=== PATIENT | female | born 1990 | race Caucasian/White ===

== ENCOUNTER 2021-11-11 11:31 | Inpatient (IN) ==
[2021-11-12] MEDS ORDERED: miSOPROStoL 50 MCG TAB PO ONE (01:24)
[2021-11-12] MEDS ORDERED: OXYTOCIN 30 UNITS/500 ML BAG IV PRN (01:24)
[2021-11-12] MEDS ORDERED: LACTATED RINGER'S 1,000 ML IV PRN (01:24)
[2021-11-12] MEDS ORDERED: PATIENT'S ALLERGY INFO NEEDS ENTERED SCH (01:30)
[2021-11-12] MEDS ORDERED: miSOPROStoL 50 MCG TAB ONE (01:45)
[2021-11-12 02:04] LABS: Hematocrit (blood only) 34.9 % (37-47); Hemoglobin 12.3 g/dL (12.0-16.0); Mean Corpuscular Hemoglobin 33.5 pg (25-34); Mean Corpuscular Hgb Conc 35.2 g/dL (32-36); Mean Corpuscular Volume 95.1 fL (80-100); Mean Platelet Volume 10.7 fL (7.4-10.4); Platelet Count 233 K/uL (130-400); RDW Coefficient of Variation 12.1 % (11.5-14.5); RDW Standard Deviation 41.9 fL (36.4-46.3); Red Blood Count 3.67 M/uL (4.2-5.4); White Blood Count 9.42 K/uL (4.8-10.8)
--- NOTE | 2021-11-12 07:08 | History & Physical Report ---
Date of Service November 12, 2021 Assessment & Plan (1) : Plan: Induction of labor planned with Cytotec for cervical ripening Admission and Anticipated Discharge Date Admission Date: November 12, 2021 History of Present Illness Chief Complaint: induction for post-dates Primary Care Provider: ZENY PCP 31 F [id number] at 40.5 weeks admitted to L&D for induction of labor for post-dates . course has been uncomplicated. GBS is negative. Covid is negative. Allergies Allergy/AdvReac Type Severity Reaction Status Date / Time No Known Allergies Allergy Verified 11/12/21 02:04 Home Medications Medication Instructions Recorded Confirmed Type Vitamin 1 tab PO DAILY 11/12/21 11/12/21 History Vitron-C 1 tab PO BID 11/12/21 11/12/21 History Patient History Medical History Antepartum anemia complicating Plantar warts , normal first Surgical History History of breast augmentation History of repair of inguinal hernia History of wisdom tooth extraction Family History Other Family history of breast cancer in mother Family history of pancreatic cancer Social History Smoking Status: Never smoker Second Hand Exposure: No; Do You Dip or Chew Tobacco: No; Tobacco Cessation Education Requested by Patient: No Hx Alcohol Use: No Hx Substance Use: No Preferred Language: [place] Islander Communication Ability: Effective 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 marital status: Current Living Situation: Spouse Other Information That Helps Us Care for You: No Feels Safe at Home: Yes Safety Concerns: Feels Safe At This Time Assistive Devices: None 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/20 Review of Systems All systems reviewed & are unremarkable except as noted in HPI & below Physical Exam Constitutional: WD/WN, vitals as above comfortable Eyes: PERRL, conjunctivae normal, anicteric sclerae Respiratory: normal respiratory effort, lungs clear to auscultation Cardiovascular: RRR, no murmur, no edema Skin: no rashes, warm and dry Neurologic: patellar DTR's 2+ bilat, sensation intact Psychiatric: A+Ox3, euthymic affect Genitourinary: no vaginal lesions, no adnexal mass OB Exam Abdomen: + fundal height and + vertex Manual OB Exam: + cervical dilation 1 cm, + cervical effacement 50% and + station high OB Exam Monitor Tracing: + external FHT monitor used, + external uterine monitor used, + category I and + normal FHT variability Results & Data ([facility]) Vital Signs (Past 12 Hours) Vital Signs Temp Pulse Resp BP 11/12/21 01:30 36.8 C 18 11/12/21 00:53 115 H 127/79 11/12/21 00:51 36.8 C 20 Laboratory Results Laboratory Results - last 24 hr 11/12/21 01:37 WBC 9.42 RBC 3.67 L Hgb 12.3 Hct 34.9 L MCV 95.1 MCH 33.5 MCHC 35.2 RDW Std Deviation 41.9 RDW Coeff of Santosh 12.1 Plt Count 233 MPV 10.7 H Monitoring External Monitor Cat 1
[2021-11-12] MEDS ORDERED: miSOPROStoL 25 MCG TAB ONE (08:46)
[2021-11-12] MEDS: miSOPROStoL 25 MCG TAB SL SCH ×2 (09:03→13:32)
--- NOTE | 2021-11-12 13:33 | Labor Progress Brief Note ---
Date of Service November 12, 2021 Subjective Patient doing well at this time, noticed some spotting when she wiped when she went to the bathroom. No other complaints at this time Assessment & Plan (1) 40 weeks gestation of : Plan: Continue Misoprostol 25 mcg sublingually every 4 hours Epidural with patient request, once patient continues to make cervical change, will proceed with oxytocin augmentation AROM Anticipate Admission and Anticipated Discharge Date Admission Date: November 12, 2021 Physical Exam Physical Exam: heart tracing: Baseline 1 45-1 50, moderate variability, positive accelerations, no decelerations, category 1 tracing Tocometer: Irregular contractions Cervix: 1.5/40/-3 Results & Data ([facility]) Vital Signs (Past 12 Hours) Vital Signs Pulse BP 11/12/21 13:24 83 134/81 11/12/21 07:59 102 H 138/91
[2021-11-12] MEDS ORDERED: DINOPROSTONE 10 MG INSERT PV ONE (19:00)
--- NOTE | 2021-11-12 19:54 | Labor Progress Brief Note ---
Date of Service November 12, 2021 Subjective Patient doing well at this time, no regular contractions. No other complaints Assessment & Plan (1) 40 weeks gestation of : Plan: Cervidil for 12 hours for cervical ripening Epidural with patient request, once patient continues to make cervical change, will proceed with oxytocin augmentation AROM Anticipate Admission and Anticipated Discharge Date Admission Date: November 12, 2021 Physical Exam Physical Exam: heart tracing: Baseline 125, moderate variability, positive accelerations, no decelerations, category 1 tracing Tocometer contractions q. 5 to 6 minutes Cervix: 1.5/50/-3 posterior, Cervidil placed Results & Data ([facility]) Vital Signs (Past 12 Hours) Vital Signs Temp Pulse Resp BP 11/12/21 19:25 36.8 C 72 18 132/81 11/12/21 16:36 71 128/82 11/12/21 13:24 83 134/81 11/12/21 07:59 36.6 C 102 H 18 138/91
[2021-11-13] MEDS ORDERED: DINOPROSTONE 10 MG INSERT PV ONE (11:25)
--- NOTE | 2021-11-13 11:27 | Labor Progress Brief Note ---
Date of Service November 13, 2021 Subjective Reason For Note: Routine Evaluation Assessment & Plan Admission and Anticipated Discharge Date Admission Date: November 12, 2021 Physical Exam Genitourinary: Manual OB Exam: + cervical dilation 1 cm and 2 cm, + cervical effacement 50% and + station high Cervix firm and posterior discussed continuing Cervidil for ripening of cervix Results & Data ([facility]) Vital Signs (Past 12 Hours) Vital Signs Temp Pulse Resp BP 11/13/21 10:59 69 137/68 11/13/21 07:40 36.9 C 72 20 144/78 H 11/13/21 04:50 36.6 C 18 11/13/21 04:47 70 106/55 L 11/12/21 23:49 36.9 C 84 18 112/64
--- NOTE | 2021-11-13 11:44 | Labor Progress Brief Note ---
Date of Service November 13, 2021 Assessment & Plan Admission and Anticipated Discharge Date Admission Date: November 12, 2021 Physical Exam Genitourinary: OB Exam Monitor Tracing: + external FHT monitor used, + external uterine monitor used, + category I and + normal FHT variability Cervidil 10 mg placed vaginally. Results & Data ([facility]) Vital Signs (Past 12 Hours) Vital Signs Temp Pulse Resp BP 11/13/21 10:59 36.9 C 69 20 137/68 11/13/21 07:40 36.9 C 72 20 144/78 H 11/13/21 04:50 36.6 C 18 11/13/21 04:47 70 106/55 L 11/12/21 23:49 36.9 C 84 18 112/64
[2021-11-13] MEDS ORDERED: BUTORPHANOL TARTRATE 1 MG/ML VIAL IV STA (22:14)
[2021-11-13] MEDS ORDERED: BUTORPHANOL TARTRATE 1 MG/ML VIAL ONE (22:16)
--- NOTE | 2021-11-13 23:49 | Labor Progress Brief Note ---
Date of Service November 13, 2021 Assessment & Plan Admission and Anticipated Discharge Date Admission Date: November 12, 2021 Physical Exam Genitourinary: Manual OB Exam: + cervical dilation 4 cm, + cervical effacement 70% and + station -2 OB Exam Monitor Tracing: + external FHT monitor used, + external uterine monitor used, + category I and + normal FHT variability Cervidil removedplans for epidural EFW 7.5 lbs Results & Data ([facility]) Vital Signs (Past 12 Hours) Vital Signs Temp Pulse Resp BP 11/13/21 23:04 36.7 C 62 16 107/55 L 11/13/21 19:04 36.5 C 75 16 114/63 11/13/21 15:30 36.9 C 78 20 124/78
[2021-11-13] MEDS ORDERED: SODIUM CHLORIDE 0.9% INJ 10 ML VIAL ONE (23:54)
[2021-11-13] MEDS ORDERED: ePHEDrine sulfate 50 MG/ML AMP ONE (23:54)
[2021-11-13] MEDS ORDERED: BUPIVACAINE 0.25% 30 ML VIAL ONE (23:54)
[2021-11-13] MEDS ORDERED: fentaNYL citrate 100 MCG/2 ML VIAL ONE (23:54)
[2021-11-13] MEDS ORDERED: fentaNYL 2MCG/ML ROPIVACAINE 1.25MG/ML 100 ML BAG EPI ONE (23:55)
[2021-11-14] MEDS ORDERED: NALOXONE HCL 0.4 MG/1 ML VIAL/CARP IV PRN (00:26)
[2021-11-14] MEDS ORDERED: PROMETHAZINE HCL 6.25 MG in SODIUM CHLORIDE 0.9% 50 ML IV PRN (00:26)
[2021-11-14] MEDS ORDERED: ONDANSETRON INJ 2 MG/ML 2 ML VIAL IV PRN (00:26)
[2021-11-14] MEDS ORDERED: ePHEDrine sulfate 50 MG/ML AMP IV PRN (00:26)
[2021-11-14] MEDS ORDERED: diphenhydrAMINE 50 MG/ML VIAL IV PRN (00:26)
[2021-11-14] MEDS ORDERED: NALBUPHINE HCL INJ 10 MG/ML AMP IV PRN (00:26)
[2021-11-14] MEDS ORDERED: NALOXONE HCL 1 MG in SODIUM CHLORIDE 0.9% 1000ML 1,000 ML IV PRN (00:26)
--- NOTE | 2021-11-14 00:27 | Anesthesiology Consultation ---
Date of Service November 14, 2021 Assessment & Plan Chart Review Chart Review: Patient NOT seen in Pre Admission Testing and Acceptable Risk for Labor Epidural Consults Requested none ASA ASA2 Proposed Anesthesia Anesthesia Type: Labor Epidural Risk / Benefits Reviewed With: PT / POA / Parent / Guardian, Accepts Plan and Informed Consent Obtained History Height/Weight Height: 5 ft 2 in Weight: 71.214 kg Allergies Allergy/AdvReac Type Severity Reaction Status Date / Time No Known Allergies Allergy Verified 11/12/21 02:04 Medications Home Medications Medication Instructions Recorded Confirmed Last Taken Vitamin 1 tab PO DAILY 11/12/21 11/12/21 11/11/21 08:00 Vitron-C 1 tab PO BID 11/12/21 11/12/21 11/11/21 08:00 Active Medications Generic Name Dose Route Start Last Admin Trade Name Freq PRN Reason Stop Dose Admin Lactated Ringer's 1,000 mls @ 125 mls/hr 11/12/21 01:24 11/13/21 23:49 Lr IV 11/14/21 01:23 999 mls/hr .Q8H PRN Administration L&D Protocol Protocol Past Medical History Medical History Antepartum anemia complicating Plantar warts , normal first Exercise / Class Metabolic Activity II 4-5 Yardwork/Stairs/Walk up hill Past Family History Family History Other Family history of breast cancer in mother Family history of pancreatic cancer Past Surgical History Surgical History History of breast augmentation History of repair of inguinal hernia History of wisdom tooth extraction Past Anesthesia History No Hx of Anesthesia Complications and No Family Hx of Anesthesia Complications History of PONV No Hx of PONV and No Hx of Motion Sickness Social History Smoking Status: Never smoker Do You Dip or Chew Tobacco: No Hx Alcohol Use: No Hx Substance Use: No substance use type: does not use Physical Exam Vital Signs Last Vital Signs Temp 36.7 C 11/13/21 23:04 Pulse 62 11/13/21 23:04 Resp 16 11/13/21 23:04 BP 107/55 L 11/13/21 23:04 ENMT Mouth: no dentition abnormality Thyromental Distance: > or= 3.5 Finger Breadths Mallampati Class: II Neck normal visual inspection Respiratory normal respiratory effort Auscultation: lungs clear to auscultation bilaterally Cardiovascular Rate/Rhythm: regular rate and regular rhythm Psychiatric Orientation: alert Testing Laboratory Results 11/12/21 01:37
[2021-11-14] MEDS: LACTATED RINGER'S 1,000 ML IV SCH ×3 (04:09→16:58)
[2021-11-14] MEDS ORDERED: OXYTOCIN 30 UNITS/500 ML BAG IV PRN ×2 (05:32→21:06)
--- NOTE | 2021-11-14 09:29 | Labor Progress Brief Note ---
Date of Service November 14, 2021 Assessment & Plan Admission and Anticipated Discharge Date Admission Date: November 12, 2021 Physical Exam Genitourinary: Manual OB Exam: + cervical dilation 6 cm, + cervical effacement 90%, + station Not -2 and + amniotic fluid clear OB Exam Monitor Tracing: + external FHT monitor used, + external uterine monitor used, + category I and + normal FHT variability AROM with Amni-hook clear fluid Results & Data ([facility]) Vital Signs (Past 12 Hours) Vital Signs Temp Pulse Resp BP Pulse Ox 11/14/21 09:18 75 109/58 L 95 11/14/21 09:03 71 105/58 L 95 11/14/21 09:01 20 11/14/21 08:49 72 108/56 L 11/14/21 08:48 73 96 11/14/21 08:33 85 108/56 L 96 11/14/21 08:31 20 11/14/21 08:19 71 133/68 11/14/21 08:18 72 97 11/14/21 08:04 72 126/71 11/14/21 08:03 71 97 11/14/21 08:01 20 11/14/21 07:49 77 133/80 11/14/21 07:48 71 131/78 96 11/14/21 07:34 76 130/77 11/14/21 07:33 88 97 11/14/21 07:31 20 11/14/21 07:20 37.2 C 20 11/14/21 07:19 80 128/78 11/14/21 07:18 88 98 11/14/21 07:03 95 H 114/68 97 11/14/21 06:49 67 113/59 L 11/14/21 06:48 68 95 11/14/21 06:33 80 111/64 97 11/14/21 06:19 76 113/66 11/14/21 06:18 71 96 11/14/21 06:05 77 117/70 11/14/21 06:03 70 96 11/14/21 05:48 80 102/55 L 96 11/14/21 05:33 79 112/64 96 11/14/21 05:20 87 103/65 11/14/21 05:18 98 H 96 11/14/21 05:05 74 107/57 L 11/14/21 05:03 72 96 11/14/21 04:49 75 95/51 L 11/14/21 04:48 82 95 11/14/21 04:34 75 100/58 L 11/14/21 04:33 75 95 11/14/21 04:19 74 100/59 L 11/14/21 04:18 76 95 11/14/21 04:03 75 104/56 L 96 11/14/21 03:49 80 105/58 L 11/14/21 03:48 80 96 11/14/21 03:33 82 115/60 96 11/14/21 03:18 78 107/56 L 97 11/14/21 03:03 78 107/60 96 11/14/21 03:00 36.5 C 16 11/14/21 02:50 74 108/66 11/14/21 02:48 65 96 11/14/21 02:33 78 104/56 L 96 11/14/21 02:20 84 102/57 L 11/14/21 02:18 86 96 11/14/21 02:04 82 109/62 11/14/21 02:03 81 96 11/14/21 01:48 81 114/56 L 96 11/14/21 01:35 81 106/55 L 11/14/21 01:33 75 96 11/14/21 01:18 76 113/58 L 96 11/14/21 01:04 71 119/66 11/14/21 01:03 70 96 11/14/21 00:48 81 118/62 96 11/14/21 00:46 86 124/66 11/14/21 00:44 73 117/61 11/14/21 00:42 82 119/65 11/14/21 00:40 65 128/72 11/14/21 00:38 71 134/78 11/14/21 00:29 91 H 98 11/13/21 23:04 36.7 C 62 16 107/55 L
[2021-11-14] MEDS: fentaNYL 2MCG/ML ROPIVACAINE 1.25MG/ML 100 ML BAG EPI PRN ×2 (09:49→16:19)
[2021-11-14] MEDS ORDERED: ACETAMINOPHEN 500 MG TAB PO PRN (13:38)
[2021-11-14] MEDS: AMPICILLIN 1,000 MG in SODIUM CHLOR 0.9% AD-VAN 50 ML IV SCH ×2 (14:12→19:36)
--- NOTE | 2021-11-14 14:51 | Labor Progress Brief Note ---
Date of Service November 14, 2021 Assessment & Plan Admission and Anticipated Discharge Date Admission Date: November 12, 2021 Physical Exam Genitourinary: Manual OB Exam: + cervical dilation 9 cm, + cervical effacement 100%, + station 0 and + amniotic fluid clear OB Exam Monitor Tracing: + external FHT monitor used, + external uterine monitor used, + category I and + normal FHT variability anterior lip Results & Data ([facility]) Vital Signs (Past 12 Hours) Vital Signs Temp Pulse Resp BP Pulse Ox 11/14/21 14:48 92 H 146/81 H 96 11/14/21 14:46 38.4 C H 20 11/14/21 14:33 96 H 143/82 H 97 11/14/21 14:31 20 11/14/21 14:18 86 142/81 H 96 11/14/21 14:03 83 151/91 H 98 11/14/21 14:01 20 11/14/21 13:48 84 143/79 H 99 11/14/21 13:33 86 144/78 H 98 11/14/21 13:28 38.6 C H 20 11/14/21 13:18 97 H 124/73 97 11/14/21 13:04 82 125/74 11/14/21 13:03 78 96 11/14/21 13:00 20 11/14/21 12:48 82 124/73 98 11/14/21 12:42 37.7 C H 20 11/14/21 12:34 75 106/59 L 11/14/21 12:33 78 96 11/14/21 12:30 20 11/14/21 12:19 73 109/60 11/14/21 12:18 73 97 11/14/21 12:03 71 106/59 L 98 11/14/21 11:49 71 113/63 11/14/21 11:48 71 99 11/14/21 11:33 77 124/62 99 11/14/21 11:31 18 11/14/21 11:18 77 116/63 98 11/14/21 11:04 37.3 C 80 119/71 11/14/21 11:03 78 99 11/14/21 11:01 20 11/14/21 10:48 76 118/72 98 11/14/21 10:34 80 123/74 11/14/21 10:33 71 97 11/14/21 10:31 20 11/14/21 10:19 87 123/75 11/14/21 10:18 79 97 11/14/21 10:04 80 123/72 11/14/21 10:03 80 96 11/14/21 10:01 20 11/14/21 09:48 88 120/77 97 11/14/21 09:34 82 123/73 11/14/21 09:33 83 96 11/14/21 09:31 20 11/14/21 09:18 75 109/58 L 95 11/14/21 09:03 71 105/58 L 95 11/14/21 09:01 20 11/14/21 08:49 72 108/56 L 11/14/21 08:48 73 96 11/14/21 08:33 85 108/56 L 96 11/14/21 08:31 20 11/14/21 08:19 71 133/68 11/14/21 08:18 72 97 11/14/21 08:04 72 126/71 11/14/21 08:03 71 97 11/14/21 08:01 20 11/14/21 07:49 77 133/80 11/14/21 07:48 71 131/78 96 11/14/21 07:34 76 130/77 11/14/21 07:33 88 97 11/14/21 07:31 20 11/14/21 07:20 37.2 C 20 11/14/21 07:19 80 128/78 11/14/21 07:18 88 98 11/14/21 07:03 95 H 114/68 97 11/14/21 06:49 67 113/59 L 11/14/21 06:48 68 95 11/14/21 06:33 80 111/64 97 11/14/21 06:19 76 113/66 11/14/21 06:18 71 96 11/14/21 06:05 77 117/70 11/14/21 06:03 70 96 11/14/21 05:48 80 102/55 L 96 11/14/21 05:33 79 112/64 96 11/14/21 05:20 87 103/65 11/14/21 05:18 98 H 96 11/14/21 05:05 74 107/57 L 11/14/21 05:03 72 96 11/14/21 04:49 75 95/51 L 11/14/21 04:48 82 95 11/14/21 04:34 75 100/58 L 11/14/21 04:33 75 95 11/14/21 04:19 74 100/59 L 11/14/21 04:18 76 95 11/14/21 04:03 75 104/56 L 96 11/14/21 03:49 80 105/58 L 11/14/21 03:48 80 96 11/14/21 03:33 82 115/60 96 11/14/21 03:18 78 107/56 L 97 11/14/21 03:03 78 107/60 96 11/14/21 03:00 36.5 C 16
[2021-11-14] MEDS ORDERED: NURSING L&D Epidural Breakthrough Pain Update ONE (15:59)
--- NOTE | 2021-11-14 20:33 | Delivery Summary ---
Vaginal Delivery Summary Date of Service November 14, 2021 Vaginal Delivery Summary Delivery Note live male LAYTON over intact perineum with nuchal cord x1 reduced at perineum. Apgars 7/9 weight pending. Cord blood obtained followed by spontaneous delivery of intact placenta. Small vaginal tear repaired with one figure of eoght 3/0 Vicryl suture. EBL 250 ml. Final sponge needle and instrument count are correct. Mom and baby stable.
[2021-11-14] MEDS ORDERED: BENZOCAINE 20% AER SPR 82.5 GM CAN EXT PRN (21:06)
[2021-11-14] MEDS ORDERED: METHYLERGONOVINE MALEATE 0.2 MG/ML AMP IM ONE (21:06)
[2021-11-14] MEDS ORDERED: bisacodyL 10 MG SUPP PR PRN (21:06)
[2021-11-14] MEDS ORDERED: DIPHTHERIA/TETANUS/PERTUSSIS 0.5 ML SYR/VIAL IM ONE (21:06)
[2021-11-14] MEDS ORDERED: HYDROCORTISONE ACETATE 25 MG SUPP PR PRN (21:06)
[2021-11-14] MEDS ORDERED: SUPERCREAM 0.870% 15 GM JAR EXT PRN (21:06)
[2021-11-14] MEDS ORDERED: ACETAMINOPHEN 325 MG TAB PO PRN (21:06)
[2021-11-14] MEDS: IBUPROFEN 600 MG TAB PO PRN (21:21)
[2021-11-14] MEDS: DOCUSATE SODIUM 100 MG CAP PO SCH (21:23)
--- NOTE | 2021-11-14 22:07 | Anesthesia Procedure Note ---
Date of Service November 14, 2021 Anesthesia Post Epidural Note Vital Signs Vital Signs: Temp Pulse Resp BP Pulse Ox 36.5 C 71 18 153/91 H 98 11/14/21 19:06 11/14/21 22:03 11/14/21 19:06 11/14/21 22:03 11/14/21 20:18 Pain Intensity Bilateral Abdomen: Pain Intensity: 10 Notes Mental Status: alert / awake / arousable Nausea / Vomiting: adequately controlled Pain: adequately controlled Airway Patency, RR, SpO2: stable & adequate BP & HR: stable & adequate Hydration State: stable & adequate Neuraxial Anesthesia: was administered and sensory block is resolving Anesthetic Complications: no major complications apparent and Pt Satisfied with anesthetic care Epidural: Removed without complications and With tip intact
[2021-11-15] MEDS: AMPICILLIN 1,000 MG in SODIUM CHLOR 0.9% AD-VAN 50 ML IV SCH ×4 (02:21→20:45)
[2021-11-15] MEDS: LACTATED RINGER'S 1,000 ML IV SCH (02:22)
[2021-11-15 06:42] LABS: Hematocrit (blood only) 32.1 % (37-47); Hemoglobin 11.2 g/dL (12.0-16.0); Mean Corpuscular Hemoglobin 32.7 pg (25-34); Mean Corpuscular Hgb Conc 34.9 g/dL (32-36); Mean Corpuscular Volume 93.6 fL (80-100); Mean Platelet Volume 10.4 fL (7.4-10.4); Platelet Count 200 K/uL (130-400); RDW Coefficient of Variation 12.1 % (11.5-14.5); RDW Standard Deviation 40.7 fL (36.4-46.3); Red Blood Count 3.43 M/uL (4.2-5.4); White Blood Count 23.31 K/uL (4.8-10.8)
[2021-11-15] MEDS: DOCUSATE SODIUM 100 MG CAP PO SCH ×2 (07:29→20:54)
[2021-11-15] MEDS: PRENATAL VITAMIN 1 TAB PO SCH (07:29)
[2021-11-15] MEDS: ASCORBIC ACID 500 MG TAB PO SCH (07:29)
[2021-11-15] MEDS: FERROUS SULFATE 325 MG TAB PO SCH (07:29)
--- NOTE | 2021-11-15 07:48 | Obstetrical Progress Note ---
Date of Service November 15, 2021 Assessment & Plan Admission and Anticipated Discharge Date Admission Date: November 12, 2021 Subjective Patient is seen and examined. She feels well, no complaints other than being tired, she had long labor and pushed for 3 hours. Ambulating without dizziness Voiding without difficulty Tolerating regular diet with out N&V Bleeding is minimal No fever/ chills/ CP/ SOB/ N&V/ Leg pain Breast feeding without problems Vital Signs Temp Pulse Pulse Resp BP BP Pulse Ox 11/15/21 07:15 36.7 C 65 16 118/78 96 11/15/21 03:30 36.7 C 64 20 121/77 11/14/21 23:30 36.8 C 73 20 135/83 11/14/21 22:33 67 149/85 H 11/14/21 22:18 68 149/85 H 11/14/21 22:03 71 153/91 H 11/14/21 21:48 81 154/90 H 11/14/21 21:46 71 151/87 H 11/14/21 21:33 69 155/90 H 11/14/21 21:18 71 146/88 H 11/14/21 21:03 64 154/92 H 11/14/21 20:48 76 154/97 H 11/14/21 20:33 72 142/83 H 11/14/21 20:18 89 132/62 98 11/14/21 20:04 131 H 162/93 H 11/14/21 20:03 147 H 98 11/14/21 19:48 123 H 159/89 H 96 Lab Results 11/12/21 11/15/21 Range/Units 01:37 06:16 WBC 9.42 23.31 H (4.8-10.8) K/uL RBC 3.67 L 3.43 L (4.2-5.4) M/uL Hgb 12.3 11.2 L (12.0-16.0) g/dL Hct 34.9 L 32.1 L (37-47) % MCV 95.1 93.6 (80-100) fL MCH 33.5 32.7 (25-34) pg MCHC 35.2 34.9 (32-36) g/dL RDW Std Deviation 41.9 40.7 (36.4-46.3) fL RDW Coeff of Santosh 12.1 12.1 (11.5-14.5) % Plt Count 233 200 (130-400) K/uL MPV 10.7 H 10.4 (7.4-10.4) fL PE: General: Alert, orientedx3, NAD Abd: soft, NT, fundus firm, below Umbilicus Perineum intact, Lochia rubra minimal Ext; NT, no edema AP: 31 yo s/p , IOL since 11/11, fever during labor and on IV Ampicillin, ppd# 1 VSS Afebrile doing well WBCC elevated, continue IV AB until am and recheck CBC with diff Baby is doing well, afebrile Continue routine care All questions were answered Anticipate D/C home tomorrow Results & Data ([facility]) Vital Signs (Past 12 Hours) Vital Signs Temp Pulse Pulse Resp BP BP Pulse Ox 11/15/21 07:15 36.7 C 65 16 118/78 96 11/15/21 03:30 36.7 C 64 20 121/77 11/14/21 23:30 36.8 C 73 20 135/83 11/14/21 22:33 67 149/85 H 11/14/21 22:18 68 149/85 H 11/14/21 22:03 71 153/91 H 11/14/21 21:48 81 154/90 H 11/14/21 21:46 71 151/87 H 11/14/21 21:33 69 155/90 H 11/14/21 21:18 71 146/88 H 11/14/21 21:03 64 154/92 H 11/14/21 20:48 76 154/97 H 11/14/21 20:33 72 142/83 H 11/14/21 20:18 89 132/62 98 11/14/21 20:04 131 H 162/93 H 11/14/21 20:03 147 H 98 11/14/21 19:48 123 H 159/89 H 96
[2021-11-15] MEDS ORDERED: PRENATAL VITAMIN PO SCH (09:00)
[2021-11-15] MEDS: IBUPROFEN 600 MG TAB PO PRN ×3 (10:03→20:53)
[2021-11-15] MEDS ORDERED: bisacodyL 5 MG TABEC PO SCH (20:00)
[2021-11-16] MEDS: AMPICILLIN 1,000 MG in SODIUM CHLOR 0.9% AD-VAN 50 ML IV SCH ×2 (02:38→07:47)
[2021-11-16] MEDS: IBUPROFEN 600 MG TAB PO PRN ×2 (02:38→08:17)
[2021-11-16 06:29] LABS: Basophils # (auto) 0.03 K/uL (0-0.2); Basophils % (auto) 0.2 %; Eosinophils # (auto) 0.21 K/uL (0-0.5); Eosinophils % (auto) 1.5 %; Hematocrit (blood only) 27.8 % (37-47); Hemoglobin 9.8 g/dL (12.0-16.0); Immature Granulocytes # (auto) 0.05 K/uL (0.00-0.02); Immature Granulocytes % (auto) 0.4 %; Lymphocytes # (auto) 1.77 K/uL (1.2-3.4); Lymphocytes % (auto) 12.5 %; Mean Corpuscular Hemoglobin 33.3 pg (25-34); Mean Corpuscular Hgb Conc 35.3 g/dL (32-36); Mean Corpuscular Volume 94.6 fL (80-100); Mean Platelet Volume 10.1 fL (7.4-10.4); Monocytes # (auto) 0.68 K/uL (0.11-0.59); Monocytes % (auto) 4.8 %; Neutrophils # (auto) 11.46 K/uL (1.4-6.5); Neutrophils % (auto) 80.6 %; Platelet Count 194 K/uL (130-400); RDW Coefficient of Variation 12.3 % (11.5-14.5); RDW Standard Deviation 41.8 fL (36.4-46.3); Red Blood Count 2.94 M/uL (4.2-5.4)
[2021-11-16] MEDS: DOCUSATE SODIUM 100 MG CAP PO SCH (08:17)
[2021-11-16] MEDS: FERROUS SULFATE 325 MG TAB PO SCH (08:17)
[2021-11-16] MEDS: PRENATAL VITAMIN 1 TAB PO SCH (08:17)
[2021-11-16] MEDS: ASCORBIC ACID 500 MG TAB PO SCH (08:19)
--- NOTE | 2021-11-16 11:45 | Obstetrical Progress Note ---
Date of Service November 16, 2021 Subjective Ambulation: ambulating normally Voiding: no voiding problems Passing Gas:: Yes Diet Tolerance:: regular diet Lochia:: Small Feeding Type:: breast feeding Current Pain Level(1-10): 0 doing well Review of Systems All systems reviewed & are unremarkable except as noted in HPI & below Physical Exam Constitutional WD/WN, vitals as above comfortable abdomen soft and non-tender fundus firm no edema neg Tomy's for d/c today Results & Data ([facility]) Vital Signs (Past 12 Hours) Vital Signs Temp Pulse Resp BP Pulse Ox 11/16/21 10:42 36.7 C 69 18 123/84 96 11/16/21 07:04 36.7 C 69 18 123/84 96 11/16/21 03:27 36.6 C 64 20 106/58 L 11/16/21 00:23 36.7 C 68 18 118/68 Laboratory Results Laboratory Results - last 72 hr 11/15/21 11/16/21 06:16 06:15 WBC 23.31 H 14.20 H RBC 3.43 L 2.94 L Hgb 11.2 L 9.8 L Hct 32.1 L 27.8 L MCV 93.6 94.6 MCH 32.7 33.3 MCHC 34.9 35.3 RDW Std Deviation 40.7 41.8 RDW Coeff of Santosh 12.1 12.3 Plt Count 200 194 MPV 10.4 10.1 Immature Gran % (Auto) 0.4 Neut % (Auto) 80.6 Lymph % (Auto) 12.5 Irwin % (Auto) 4.8 Eos % (Auto) 1.5 Baso % (Auto) 0.2 Neut # (Auto) 11.46 H Lymph # (Auto) 1.77 Irwin # (Auto) 0.68 H Eos # (Auto) 0.21 Baso # (Auto) 0.03 Immature Gran # (Auto) 0.05 H
== END 2021-11-16 11:50 | disposition home or self-care (01) | DRG 806 ==
LOC: 4S1 11-12 00:32 → 4S2 11-14 23:28

== ENCOUNTER 2023-02-08 09:30 | Observation (INO) ==
[2023-02-08] MEDS ORDERED: ONDANSETRON INJ 2 MG/ML 2 ML VIAL IV PRN (09:45)
[2023-02-08] MEDS ORDERED: PROMETHAZINE HCL 25 MG in SODIUM CHLORIDE 0.9% 50 ML IV PRN (09:45)
[2023-02-08] MEDS ORDERED: D5W AND LACTATED RINGERS 1,000 ML IV SCH (09:45)
[2023-02-08] MEDS ORDERED: ONDANSETRON 4 MG OD TAB PO PRN (09:45)
[2023-02-08 10:07] LABS: Appearance Urine Clear (Clear); Bacteria Urine Automated Negative (Negative); Bilirubin Urine Negative (Negative); Blood Urine Negative (Negative); Color Urine Yellow; Epithelial Cell Urine Auto >30 /lpf (0-5); Glucose Urine UA Negative (Negative); Ketones Urine 1+ (Negative); Leukocyte Esterase Urine Trace (Negative); Nitrite Urine Negative (Negative); Protein Urine Negative (Negative); RBC Urine Automated 0-4 /hpf (0-4); Specific Gravity Urine 1.006 (1.000-1.030); Urobilinogen Urine Negative (Negative)
--- NOTE | 2023-02-08 10:15 | History & Physical Report ---
Date of Service February 08, 2023 Assessment & Plan (1) Nausea and vomiting during : Plan: 32-year-old -0-1-1 at 33 weeks and 4 days of gestation who has been having nausea vomiting diarrhea since yesterday afternoon after eating outside, dehydration with ketonuria, Vital signs stable afebrile, heart rate reassuring, No signs or symptoms of labor, Plan to monitor, labs, stool culture with C. difficile, IV fluids, antiemetics, Tylenol and heating pad for back pain (2) Diarrhea: (3) Back pain affecting in third trimester: (4) Dehydration during : History of Present Illness Primary Care Provider: NO PCP Patient is a 32 years old -0-1-1 at 33 weeks and 4 days of gestation who has been feeling nauseous since 4 PM yesterday after she ate chicken from outside restaurant. She vomited many times until this morning also had diarrhea about 4 times. She has not been able to eat or drink since then. Her stool has been greenish. She denies fever, chills, problems with urination. She also complains of back pain since yesterday afternoon it feels like constant ache, pain level is 5 out of 10. She started to feel contractions earlier this morning but they spaced out. Nobody else is sick at home. She denies leakage of fluid or vaginal bleeding and she reports good movements. Her has been uncomplicated except close interval, she has delivered her last baby 15 months ago. Allergies Allergy/AdvReac Type Severity Reaction Status Date / Time No Known Allergies Allergy Verified 02/08/23 09:47 Home Medications Medication Instructions Recorded Confirmed Type Vitamin 1 tab PO DAILY 11/12/21 02/08/23 History Patient History Medical History Plantar warts , normal first (spontaneous vaginal delivery) 11/14/21 Surgical History History of breast augmentation History of repair of inguinal hernia History of wisdom tooth extraction Family History Other Family history of breast cancer in mother Family history of pancreatic cancer Social History Smoking Status: Never smoker Second Hand Exposure: No; Hx Alcohol Use: No Hx Substance Use: No Preferred Language: Azeri Communication Ability: Effective 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 marital status: marital status details: Buster Ronquillo Current Living Situation: Spouse current occupational status: unemployed current occupation: homemaker Feels Safe at Home: Yes Safety Concerns: Feels Safe At This Time Childhood Exposure to Second-Hand Smoke: No Assistive Devices: None OB History Full-term on November 2021 Review of Systems as per Subjective / HPI Physical Exam Constitutional: WD/WN, vitals as above + ill appearing and + thin Gastrointestinal (Abdomen): normal bowel sounds, soft, nontender, no hepatosplenomegaly Genitourinary: normal external appearance Manual OB Exam: + cervical dilation fingertip (External os fingertip, internal os closed), + cervical effacement (Thick) and + station high OB Exam Monitor Tracing: + external uterine monitor used (No contractions) and + category I Results & Data Vital Signs (Past 12 Hours) Vital Signs Pulse BP 02/08/23 09:42 94 H 111/68
[2023-02-08] MEDS: LACTATED RINGER'S 1,000 ML IV PRN ×3 (10:21→14:22)
[2023-02-08] MEDS: ACETAMINOPHEN 325 MG TAB PO PRN ×2 (10:24→16:53)
[2023-02-08 10:39] LABS: Hematocrit (blood only) 34.5 % (37.0-47.0); Hemoglobin 12.5 g/dl (12.0-16.0); Mean Corpuscular Hemoglobin 33.6 pg (25.0-34.0); Mean Corpuscular Hgb Conc 36.2 g/dL (32.0-36.0); Mean Corpuscular Volume 92.7 fL (80.0-100.0); Mean Platelet Volume 10.2 fL (9.4-12.4); Platelet Count 240 K/uL (130-400); RDW Coefficient of Variation 11.9 % (11.5-14.5); RDW Standard Deviation 40.1 fL (36.4-46.3); Red Blood Count 3.72 M/uL (4.20-5.40); White Blood Count 11.22 K/ul (4.8-10.8)
[2023-02-08 11:04] LABS: Basophils # (auto) 0.02 K/uL (0-0.2); Basophils % (auto) 0.2 %; Eosinophils # (auto) 0.02 K/uL (0-0.50); Eosinophils % (auto) 0.2 %; Immature Granulocytes # (auto) 0.04 K/uL (0.01-0.20); Immature Granulocytes % (auto) 0.4 %; Lymphocytes # (auto) 0.54 K/uL (1.2-3.4); Lymphocytes % (auto) 4.8 %; Monocytes # (auto) 0.29 K/uL (0.11-0.59); Monocytes % (auto) 2.6 %; Neutrophils # (auto) 10.31 K/uL (1.40-6.50); Neutrophils % (auto) 91.8 %
[2023-02-08 11:34] LABS: Albumin Globulin Ratio 1.1 (0.9-2); Albumin Level 3.3 gm/dl (3.4-5.0); BUN Creatinine Ratio 13.6 (10-20); Bilirubin,Total 0.7 mg/dl (0.2-1.0); Calcium 7.7 mg/dl (8.6-10.3); Creatinine Clr Calc Pharmacy 122.9 ml/min; Est GFR (African American) 141.6 ml/min; Est GFR (Non-African American) 122.1 ml/min; Potassium 3.3 mmol/L (3.5-5.1); Total Protein 6.3 gm/dl (6.0-8.3)
[2023-02-08] MEDS ORDERED: POTASSIUM CHLORIDE / WTR 10 MEQ/100 ML PLCT IV ONE (13:15)
[2023-02-08] MEDS: LACTATED RINGER'S 1,000 ML IV SCH ×3 (16:55→22:00)
--- NOTE | 2023-02-08 17:02 | Obstetrical Progress Note ---
Date of Service February 08, 2023 Assessment & Plan Admission and Anticipated Discharge Date Admission Date: February 08, 2023 Subjective Patient has received 3 lt of fluid and IV zofran Still not feeling well Sore in her back, abdomen with kicks ad nauseous, unable to tolerate PO VSS afebrile, last temp 37.5, she feels cold and under 3 blankets Lab Results 02/08/23 02/08/23 02/08/23 Range/Units 10:14 10:14 Unknown WBC 11.22 H (4.8-10.8) K/ul RBC 3.72 L (4.20-5.40) M/uL Hgb 12.5 (12.0-16.0) g/dl Hct 34.5 L (37.0-47.0) % MCV 92.7 (80.0-100.0) fL MCH 33.6 (25.0-34.0) pg MCHC 36.2 H (32.0-36.0) g/dL RDW Std Deviation 40.1 (36.4-46.3) fL RDW Coeff of Santosh 11.9 (11.5-14.5) % Plt Count 240 (130-400) K/uL MPV 10.2 (9.4-12.4) fL Immature Gran % (Auto) 0.4 % Neut % (Auto) 91.8 % Lymph % (Auto) 4.8 % Mcdonough % (Auto) 2.6 % Eos % (Auto) 0.2 % Baso % (Auto) 0.2 % Neut # (Auto) 10.31 H (1.40-6.50) K/uL Lymph # (Auto) 0.54 L (1.2-3.4) K/uL Mcdonough # (Auto) 0.29 (0.11-0.59) K/uL Eos # (Auto) 0.02 (0-0.50) K/uL Baso # (Auto) 0.02 (0-0.2) K/uL Immature Gran # (Auto) 0.04 (0.01-0.20) K/uL Sodium 134 L (136-145) mmol/L Potassium 3.3 L (3.5-5.1) mmol/L Chloride 102 (98-107) mmol/L Carbon Dioxide 24 (21-32) mmol/L Anion Gap 8 (3-11) BUN 8 (6-23) mg/dl Creatinine 0.59 L (0.6-1.2) mg/dl Est Cr Clr Drug Dosing 122.9 ml/min Est GFR ( Amer) 141.6 ml/min Est GFR (Non-Af Amer) 122.1 ml/min BUN/Creatinine Ratio 13.6 (10-20) Glucose 107 H (70-99(Fasting)) mg/dl Calcium 7.7 L (8.6-10.3) mg/dl Total Bilirubin 0.7 (0.2-1.0) mg/dl AST 15 (13-39) U/L ALT 7 (7-52) U/L Alkaline Phosphatase 73 (34-104) U/L Total Protein 6.3 (6.0-8.3) gm/dl Albumin 3.3 L (3.4-5.0) gm/dl Globulin 3.0 (2.5-4.0) gm/dl Albumin/Globulin Ratio 1.1 (0.9-2) Amylase 58 (25-115) U/L Lipase 16 (11-82) U/L Urine Color Yellow Urine Appearance Clear (Clear) Urine pH 6.0 (4.5-7.5) Ur Specific [place] 1.006 (1.000-1.030) Urine Protein Negative (Negative) Urine Glucose (UA) Negative (Negative) Urine Ketones 1+ H (Negative) Urine Blood Negative (Negative) Urine Nitrite Negative (Negative) Urine Bilirubin Negative (Negative) Urine Urobilinogen Negative (Negative) Ur Leukocyte Esterase Trace H (Negative) Urine WBC (Auto) 1-5 (0-5) /hpf Urine RBC (Auto) 0-4 (0-4) /hpf U Hyaline Cast (Auto) 1-5 (0-5) /lpf U Epithel Cells (Auto) >30 H (0-5) /lpf Urine Bacteria (Auto) Negative (Negative) Plan to consult hospitalist for further recommendations. Results & Data Vital Signs (Past 12 Hours) Vital Signs Temp Pulse Resp BP 02/08/23 10:31 36.9 C 18 02/08/23 16:56 37.5 C 02/08/23 15:41 37.2 C 87 16 94/62 L 02/08/23 11:58 37.0 C 93 H 16 112/60 02/08/23 09:42 94 H 111/68
--- NOTE | 2023-02-08 17:30 | Consultation ---
Date of Consultation February 08, 2023 Assessment & Plan (1) Nausea, vomiting and diarrhea: Patient is 32 y/o F is -0-1-1 at 33 weeks and 4 days of gestation seen in medical consultation for N/V/D. N/V/D started after eating fried chicken sandwich and [place] fries from [employer] yesterday. No ill contacts. No fever. No urinary symptoms WBC: 11, LFTs WNL. Lipase WNL. UA: not consistent with UTI Has received 2L LR. Currently receiving lactated Ringer's at 250 ml/hr. She has received Zofran 4mg IV, Phenergan 25mg IV.. No further emesis or diarrhea. Currently tolerating liquids and retained saltine crackers Would recommend continuing IVF, antiemetics as needed Suspect foodborne illness versus viral gastroenteritis Obtain stool cultures if recurrent diarrhea CBC in a.m. (2) : Active labor ruled out by OB. Continue monitoring and care per OB (3) Hypokalemia: K: 3.3. Hypokalemia likely secondary to GI losses of vomiting and diarrhea Given 1K rider Further replacement Magnesium lab pending BMP, magnesium level in a.m. Thank you for this consultation. We will follow the patient with you during their hospital stay. You can reach a member of the [facility] Hospitalist Team 29/05 via [employer] Disposition per primary service Pt was seen and care coordinated with Dr Mercedes. See addendum Supervising Physician Co-Signing Physician Notes I have seen and examined the patient and have discussed the case with the provider above. I agree with the assessment and plan as stated. 32 yo female in moderate distress who is unable to tolerate PO. She reports upper abdomen is sore from vomiting. She reports diarrhea. These symptoms began yesterday. She reports no other sick contacts. Physical reveals a female lying on her right side in mild distress from malaise. She has no neurologic defiicts. Abdomen is soft, with gravid uterus, and mild TTP in the epigastric region. Cardiac exam is normal. Extremities are warm and well perfused. Lungs are clear to auscultation throughout. Skin is warm and dry. Labwork reflects hypokalemia as above. Agree with PO supplementation and continued suppotive care with antiemetics and fluids. I agree this is likely viral vs foodborne in nature, and will hopefully resolve spontaneously. Awaiting stool culture results. Thank you for the consultation. DO Daren History of Present Illness Requesting Physician: Dr Jasso Reason for Consultation: N/V Attending Physician: Gerardo Jasso MD History of Present Illness Patient is 32 y/o F is -0-1-1 at 33 weeks and 4 days of gestation seen in medical consultation for N/V/D. Patient currently admitted on OB service. Active labor ruled out. Patient states yesterday seen at OB for routine appointment and was feeling fine. After appointment she ate fried chicken sandwich and [place] fries from [employer]. Couple hours later she started with nausea, vomiting, diarrhea. Patient states vomited 4 times. States has had 6 episodes of loose watery stool. Denies hematemesis, hematochezia. She reports this morning felt like she was having some contractions. Denies any sensation of contractions currently and not in active labor. She reports some nausea with movement of baby. Otherwise denies abdominal pain. Denies history of RUQ pain. No fevers at home. Denies any ill contacts at home. 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 She has a [id number] child at home who was not in daycare facility. Her does not have any recent illness. No others ate from restaurant yesterday. Denies AGUILAR, dizziness, syncope, CP, SOB, palpitations, cough, sore throat, rhinorrhea, extremity weakness, extremity edema, rashes, dysuria, hematuria, urinary urgency. Patient has been given 2L LR. Currently receiving lactated Ringer's at 250 ml/hr. She has received Zofran 4mg IV, Phenergan 25mg IV and 1 K rider. No further emesis or diarrhea. Tolerating liquids and just ate saltine crackers and retained. Allergies Allergy/AdvReac Type Severity Reaction Status Date / Time No Known Allergies Allergy Verified 02/08/23 09:47 Home Medications Medication Instructions Recorded Confirmed Type Vitamin 1 tab PO DAILY 11/12/21 02/08/23 History Patient History Medical History Plantar warts , normal first (spontaneous vaginal delivery) 11/14/21 Surgical History History of breast augmentation History of repair of inguinal hernia History of wisdom tooth extraction Family History Other Family history of breast cancer in mother Family history of pancreatic cancer Social History Smoking Status: Never smoker Second Hand Exposure: No; Hx Alcohol Use: No Hx Substance Use: No Preferred Language: Wolof Communication Ability: Effective Javascript Front End Developer Required: No marital status: marital status details: Buster Ronquillo Current Living Situation: Spouse current occupational status: unemployed current occupation: homemaker Feels Safe at Home: Yes Safety Concerns: Feels Safe At This Time Childhood Exposure to Second-Hand Smoke: No Assistive Devices: None Review of Systems Review of Systems: All systems reviewed & are unremarkable except as noted in HPI & below Physical Exam Physical Exam: General: no distress, WDWN Head: normocephalic, atraumatic Eyes: conjunctiva non-injected, anicteric ENT: normal inspection external ears, nose, mucous membranes moist Neck: supple, trachea midline, non-tender Lungs: clear, no respiratory distress, no wheezing/rhonchi/rales CV: RRR, no murmur, no pretibial edema Abd: +gravid uterus, normal BS, soft, non-tender to palpation Ext: no cyanosis, no calf tenderness Neuro: A&O x 3, no focal deficits noted, normal affect Skin: warm, dry Results & Data Vital Signs (Past 12 Hours) Vital Signs Temp Pulse Resp BP 02/08/23 10:31 36.9 C 18 02/08/23 16:56 37.5 C 02/08/23 15:41 37.2 C 87 16 94/62 L 02/08/23 11:58 37.0 C 93 H 16 112/60 02/08/23 09:42 94 H 111/68 Laboratory Results Short CBC 02/08/23 Range/Units 10:14 WBC 11.22 H (4.8-10.8) K/ul Hgb 12.5 (12.0-16.0) g/dl Hct 34.5 L (37.0-47.0) % Plt Count 240 (130-400) K/uL BMP 02/08/23 10:14 Sodium 134 L Potassium 3.3 L Chloride 102 Carbon Dioxide 24 BUN 8 Creatinine 0.59 L Glucose 107 H Calcium 7.7 L Liver Function 02/08/23 Range/Units 10:14 Total Bilirubin 0.7 (0.2-1.0) mg/dl AST 15 (13-39) U/L ALT 7 (7-52) U/L Alkaline Phosphatase 73 (34-104) U/L Albumin 3.3 L (3.4-5.0) gm/dl Urine 02/08/23 Range/Units Unknown Urine Color Yellow Urine Appearance Clear (Clear) Urine pH 6.0 (4.5-7.5) Ur Specific [place] 1.006 (1.000-1.030) Urine Protein Negative (Negative) Urine Glucose (UA) Negative (Negative)
[2023-02-08] MEDS ORDERED: POTASSIUM CHLORIDE CRTAB 20 MEQ TABCR PO STA (18:14)
[2023-02-08] MEDS: MAGNESIUM OXIDE 400 MG TAB PO SCH (22:01)
[2023-02-09] MEDS: LACTATED RINGER'S 1,000 ML IV SCH ×2 (01:56→05:51)
[2023-02-09 06:15] LABS: Basophils # (auto) 0.02 K/uL (0-0.2); Basophils % (auto) 0.3 %; Eosinophils % (auto) 1.6 %; Hematocrit (blood only) 29.8 % (37.0-47.0); Hemoglobin 10.3 g/dl (12.0-16.0); Immature Granulocytes # (auto) 0.02 K/uL (0.01-0.20); Immature Granulocytes % (auto) 0.3 %; Lymphocytes # (auto) 0.81 K/uL (1.2-3.4); Lymphocytes % (auto) 13.3 %; Mean Corpuscular Hemoglobin 33.1 pg (25.0-34.0); Mean Corpuscular Hgb Conc 34.6 g/dL (32.0-36.0); Mean Corpuscular Volume 95.8 fL (80.0-100.0); Mean Platelet Volume 10.3 fL (9.4-12.4); Monocytes # (auto) 0.24 K/uL (0.11-0.59); Monocytes % (auto) 3.9 %; Neutrophils # (auto) 4.91 K/uL (1.40-6.50); Neutrophils % (auto) 80.6 %; Platelet Count 211 K/uL (130-400); RDW Coefficient of Variation 12.2 % (11.5-14.5); RDW Standard Deviation 42.2 fL (36.4-46.3); Red Blood Count 3.11 M/uL (4.20-5.40)
[2023-02-09 06:29] LABS: BUN Creatinine Ratio 10.9 (10-20); Creatinine Clr Calc Pharmacy 131.9 ml/min; Est GFR (African American) 144.9 ml/min; Magnesium 1.6 mg/dl (1.7-2.4); Phosphorus 1.7 mg/dl (2.5-4.9); Potassium 3.6 mmol/L (3.5-5.1)
[2023-02-09] MEDS: MAGNESIUM OXIDE 400 MG TAB PO SCH (08:30)
[2023-02-09] MEDS ORDERED: ACETAMINOPHEN 500 MG TAB PO STA (08:39)
[2023-02-09] MEDS ORDERED: POT PHOSPHATE MONOBASIC W/ SOD TAB PO SCH (09:00)
--- NOTE | 2023-02-16 11:09 | Discharge Summary (DS) ---
DATE OF ADMISSION: 02/08/2023. DATE OF DISCHARGE: 02/09/2023. DETAILS OF ADMISSION: The patient was a 32-year-old G3, P1-0-1-1, at 33 weeks and 4 days of gestation, who was having nausea, vomiting and diarrhea since the day before. She ate outside and she started to have nausea, vomiting and then started diarrhea overnight. She came to labor and delivery with abdominal pain, diarrhea and feeling nauseous and back pain. She was found to be dehydrated with large ketones in her urine. She denied leakage of fluid or vaginal bleeding. She reported good movements. Her physical exam was unremarkable. Her cervix was closed and thick and heart rate was category 1 with good variability and accelerations. She also had some IV fluids. She was started on IV antibiotics and pain medications. Her blood work including CBC, CMP, and lipase, amylase were normal. Her potassium was low, and it was replaced. Her urine showed large ketones, otherwise normal. She was given IV fluids, IV antibiotics and offered to start drinking and eating crackers, but she did not feel well. She was feeling nauseous and then medicine consultation was done to have more recommendations. So, they recommended check her magnesium level, keep her overnight for IV fluids and antiemetics. She was kept overnight. She felt better in the morning. Her magnesium was replaced, potassium was replaced and she was discharged home on 02/09/2023. Discharge instructions were given, and she is to be seen in the office in a week. Job ID: [id number] MTDD
== END 2023-02-09 09:36 | disposition home or self-care (01) ==
LOC: OPB 09:30 → 4S1 09:30

== ENCOUNTER 2023-03-30 23:09 | Inpatient (IN) ==
[2023-03-31 00:06] LABS: Basophils # (auto) 0.06 K/uL (0-0.2); Basophils % (auto) 0.5 %; Eosinophils # (auto) 0.21 K/uL (0-0.50); Eosinophils % (auto) 1.8 %; Hematocrit (blood only) 34.6 % (37.0-47.0); Hemoglobin 12.4 g/dl (12.0-16.0); Immature Granulocytes # (auto) 0.03 K/uL (0.01-0.20); Immature Granulocytes % (auto) 0.3 %; Lymphocytes # (auto) 2.05 K/uL (1.2-3.4); Lymphocytes % (auto) 17.3 %; Mean Corpuscular Hgb Conc 35.8 g/dL (32.0-36.0); Mean Platelet Volume 10.5 fL (9.4-12.4); Monocytes # (auto) 0.52 K/uL (0.11-0.59); Monocytes % (auto) 4.4 %; Neutrophils # (auto) 9.01 K/uL (1.40-6.50); Neutrophils % (auto) 75.7 %; Platelet Count 242 K/uL (130-400); RDW Coefficient of Variation 11.4 % (11.5-14.5); RDW Standard Deviation 38.5 fL (36.4-46.3); Red Blood Count 3.76 M/uL (4.20-5.40); White Blood Count 11.88 K/ul (4.8-10.8)
--- NOTE | 2023-03-31 00:23 | History & Physical Report ---
Date of Service March 31, 2023 Assessment & Plan (1) Irregular uterine contractions: Plan: 32-year-old -0-0-1 at 40 weeks and 6 days of gestation presenting with irregular uterine contractions, minimal cervical change, not in active labor, Vital signs stable afebrile, heart rate reassuring, Discussed the findings and offered her induction/augmentation of labor today (earlier than scheduled on April 04). Patient wants to think about it and then decide. (2) Post-term , 40-42 weeks of gestation: History of Present Illness Chief Complaint: Contractions Primary Care Provider: NO PCP Patient is a 32-year-old G [id number] at 40 weeks and 6 days of gestation who has been feeling contractions since 6 PM last night, got more regular every 5 minutes since 8 PM. She rated the pain 6 out of 10. She denies leakage of fluid or vaginal bleeding. She reports good movements. Her has been uncomplicated. She was hoping to go into labor by herself and scheduled induction of labor for April 04. Her cervix was checked 2 days ago it was 1 cm dilated. Since she called me her contractions spaced out. Allergies Allergy/AdvReac Type Severity Reaction Status Date / Time No Known Allergies Allergy Verified 02/08/23 09:47 Home Medications Medication Instructions Recorded Confirmed Type ggnzihpp-[id number] 1 mg 1 tab PO DAILY 03/30/23 03/30/23 History tablet Patient History Medical History Plantar warts , normal first (spontaneous vaginal delivery) 11/14/21 Surgical History History of breast augmentation History of repair of inguinal hernia History of wisdom tooth extraction Family History Other Family history of breast cancer in mother Family history of pancreatic cancer Social History Smoking Status: Never smoker Second Hand Exposure: No; Do You Dip or Chew Tobacco: No; Hx Alcohol Use: No Hx Substance Use: No Preferred Language: Yi Communication Ability: Effective Disk Sharpener Required: No Beliefs That Will Affect Care: None marital status: marital status details: Buster Ronquillo Current Living Situation: Spouse and Family current occupational status: unemployed current occupation: homemaker Other Information That Helps Us Care for You: No Feels Safe at Home: Yes Safety Concerns: Feels Safe At This Time Childhood Exposure to Second-Hand Smoke: No Assistive Devices: None OB History Full-term in November 2021 Review of Systems as per Subjective / HPI Physical Exam Constitutional: WD/WN, vitals as above Gastrointestinal (Abdomen): normal bowel sounds, soft, nontender, no hepatosplenomegaly (Gravid) Genitourinary: normal external appearance OB Exam Abdomen: + vertex Manual OB Exam: + cervical dilation 3 cm, + cervical effacement 50% and + station high (-3, posterior) OB Exam Monitor Tracing: + external uterine monitor used and + category I Results & Data Vital Signs (Past 12 Hours) Vital Signs Temp Pulse Resp BP 03/30/23 23:27 37.0 C 18 03/30/23 23:23 77 133/68
[2023-03-31] MEDS ORDERED: OXYTOCIN 30 UNITS/500 ML BAG IV PRN ×3 (01:43→09:43)
[2023-03-31] MEDS ORDERED: LIDOCAINE 1% LOCAL 20 ML VIAL INFIL PRN (01:43)
[2023-03-31] MEDS ORDERED: BUTORPHANOL TARTRATE 1 MG/ML VIAL IV PRN (01:43)
--- NOTE | 2023-03-31 01:43 | Obstetrical Progress Note ---
Date of Service March 31, 2023 Subjective Patient is reevaluated Her ctxs spaced out VE; 3-4 cm/ 70%/ -2, slight change since last exam FHR categ I [place] ctxs q 4-10 min Recommended to be admitted and augmentation with Oxytocin She agrees to stay Patient is hoping to go into labor by herself and wants to delay Oxytocin for now. Continue to monitor closely Results & Data Vital Signs (Past 12 Hours) Vital Signs Temp Pulse Resp BP 03/30/23 23:27 37.0 C 18 03/30/23 23:23 77 133/68
[2023-03-31] MEDS ORDERED: SODIUM CHLORIDE 0.9% PF INJ 10 ML VIAL ONE (04:41)
[2023-03-31] MEDS ORDERED: ePHEDrine sulfate 50 MG/ML AMP ONE (04:41)
[2023-03-31] MEDS ORDERED: fentaNYL citrate PF 100 MCG/2 ML VIAL ONE (04:41)
[2023-03-31] MEDS ORDERED: BUPIVACAINE 0.25% PF 30 ML VIAL ONE (04:42)
[2023-03-31] MEDS ORDERED: fentaNYL 2MCG/ML ROPIVACAINE 1.25MG/ML 100 ML BAG EPI ONE (04:42)
[2023-03-31] MEDS ORDERED: LIDOCAINE 2%/EPINEPHRINE 1:200,000 20 ML PF ONE (04:42)
[2023-03-31] MEDS: LACTATED RINGER'S 1,000 ML IV PRN ×2 (05:31→06:39)
[2023-03-31] MEDS ORDERED: SODIUM CHLORIDE 0.9% PF INJ 10 ML VIAL EPI PRN (05:40)
[2023-03-31] MEDS ORDERED: fentaNYL citrate PF 100 MCG/2 ML VIAL EPI STA (05:40)
[2023-03-31] MEDS ORDERED: SODIUM CHLORIDE 0.9% PF INJ 10 ML VIAL EPI STA (05:40)
[2023-03-31] MEDS ORDERED: BUPIVACAINE 0.25% PF 30 ML VIAL EPI PRN (05:40)
[2023-03-31] MEDS ORDERED: ROPIVACAINE 0.5% PF 5 MG/ML 20 ML VIAL EPI PRN (05:40)
[2023-03-31] MEDS ORDERED: NALOXONE HCL 1 MG in SODIUM CHLORIDE 0.9% 1000ML 1,000 ML IV PRN (05:40)
[2023-03-31] MEDS ORDERED: NALBUPHINE HCL INJ 10 MG/ML AMP IV PRN (05:40)
[2023-03-31] MEDS ORDERED: fentaNYL citrate PF 100 MCG/2 ML VIAL EPI PRN (05:40)
[2023-03-31] MEDS ORDERED: ONDANSETRON INJ 2 MG/ML 2 ML VIAL IV PRN (05:40)
[2023-03-31] MEDS ORDERED: LIDOCAINE 2% MPF LOCAL 5 ML VIAL EPI PRN (05:40)
[2023-03-31] MEDS ORDERED: BUPIVACAINE 0.25% PF 30 ML VIAL EPI STA (05:40)
[2023-03-31] MEDS ORDERED: NALOXONE HCL 0.4 MG/1 ML VIAL/CARP IV PRN (05:40)
[2023-03-31] MEDS ORDERED: diphenhydrAMINE 50 MG/ML VIAL IV PRN (05:40)
[2023-03-31] MEDS ORDERED: LIDOCAINE 2%/EPINEPHRINE 1:200,000 20 ML PF EPI STA (05:40)
[2023-03-31] MEDS ORDERED: ePHEDrine sulfate 50 MG/ML AMP IV PRN (05:40)
[2023-03-31] MEDS ORDERED: fentaNYL 2MCG/ML ROPIVACAINE 1.25MG/ML 100 ML BAG EPI PRN (05:40)
--- NOTE | 2023-03-31 05:41 | Anesthesiology Consultation ---
Date of Service March 31, 2023 Assessment & Plan Chart Review Chart Review: Patient NOT seen in Pre Admission Testing and Acceptable Risk for Labor Epidural Consults Requested none ASA ASA2 Proposed Anesthesia Anesthesia Type: Labor Epidural Risk / Benefits Reviewed With: PT / POA / Parent / Guardian, Accepts Plan and Informed Consent Obtained History Height/Weight Height: 5 ft 2 in Weight: 67.585 kg Allergies Allergy/AdvReac Type Severity Reaction Status Date / Time No Known Allergies Allergy Verified 02/08/23 09:47 Medications Home Medications Medication Instructions Recorded Confirmed Last Taken [id number]-[id number] 1 mg 1 tab PO DAILY 03/30/23 03/30/23 Unknown tablet Active Medications Generic Name Dose Route Start Last Admin Trade Name Freq PRN Reason Stop Dose Admin Butorphanol Tartrate 1 mg 03/31/23 01:43 03/31/23 02:58 Butorphanol Tartrate 1 Mg/Ml Vial IV 04/30/23 01:42 1 mg Q3HWA PRN Administration Pain Lactated Ringer's 1,000 mls @ 125 mls/hr 03/31/23 01:43 03/31/23 05:31 Lr IV 04/02/23 01:42 125 mls/hr .Q8H PRN Administration L&D Protocol Protocol Past Medical History Medical History Plantar warts , normal first (spontaneous vaginal delivery) 11/14/21 Exercise / Class Metabolic Activity II 4-5 Yardwork/Stairs/Walk up hill Past Family History Family History Other Family history of breast cancer in mother Family history of pancreatic cancer Past Surgical History Surgical History History of breast augmentation History of repair of inguinal hernia History of wisdom tooth extraction Past Anesthesia History No Hx of Anesthesia Complications and No Family Hx of Anesthesia Complications History of PONV No Hx of PONV and No Hx of Motion Sickness Social History Smoking Status: Never smoker Do You Dip or Chew Tobacco: No Hx Alcohol Use: No Hx Substance Use: No substance use type: does not use Physical Exam Vital Signs Last Vital Signs Temp 36.8 C 03/31/23 01:52 Pulse 74 03/31/23 05:40 Resp 18 03/31/23 01:52 BP 99/57 L 03/31/23 05:40 Pulse Ox 94 03/31/23 05:39 ENMT Mouth: no dentition abnormality Thyromental Distance: > or= 3.5 Finger Breadths Mallampati Class: II Neck normal visual inspection Respiratory normal respiratory effort Auscultation: lungs clear to auscultation bilaterally Cardiovascular Rate/Rhythm: regular rate and regular rhythm Psychiatric Orientation: alert Testing Laboratory Results 03/30/23 23:43
[2023-03-31] MEDS ORDERED: bisacodyL 10 MG SUPP PR PRN (09:43)
[2023-03-31] MEDS ORDERED: HYDROCORTISONE ACETATE 25 MG SUPP PR PRN (09:43)
[2023-03-31] MEDS ORDERED: ACETAMINOPHEN 325 MG TAB PO PRN (09:43)
[2023-03-31] MEDS ORDERED: DIPHTHERIA/TETANUS/PERTUSSIS Vaccine (Tdap, Age 7+yrs) 0.5mL SYR/VL IM ONE (09:43)
[2023-03-31] MEDS ORDERED: BENZOCAINE 20% AER SPR 82.5 GM CAN EXT PRN (09:43)
--- NOTE | 2023-03-31 09:46 | Delivery Summary ---
Vaginal Delivery Summary Date of Service March 31, 2023 Vaginal Delivery Summary Delivery Note live female L[place] with delayed cord clamping and Apgars 8/9 weight pending. Cord blood obtained followed by spontaneous delivery of intact placenta with 3VC and short cord noted. No tears. EBL 100 ml. Final sponge and instrument count are correct. Mom and baby stable.
--- NOTE | 2023-03-31 10:00 | Anesthesia Procedure Note ---
Date of Service March 31, 2023 Anesthesia Post Epidural Note Vital Signs Vital Signs: Temp Pulse Resp BP Pulse Ox 36.9 C 72 20 119/62 98 03/31/23 07:00 03/31/23 09:54 03/31/23 08:00 03/31/23 09:54 03/31/23 09:28 Notes Mental Status: alert / awake / arousable Nausea / Vomiting: adequately controlled Pain: adequately controlled Airway Patency, RR, SpO2: stable & adequate BP & HR: stable & adequate Hydration State: stable & adequate Neuraxial Anesthesia: was administered and sensory block is resolving Anesthetic Complications: no major complications apparent and Pt Satisfied with anesthetic care Epidural: Removed without complications and With tip intact
[2023-03-31] MEDS: IBUPROFEN 600 MG TAB PO PRN ×2 (14:06→21:08)
[2023-03-31] MEDS: DOCUSATE SODIUM 100 MG CAP PO SCH (21:08)
[2023-04-01] MEDS: IBUPROFEN 600 MG TAB PO PRN ×2 (04:24→08:18)
[2023-04-01 07:44] LABS: Hematocrit (blood only) 35.5 % (37.0-47.0); Hemoglobin 12.4 g/dl (12.0-16.0); Mean Corpuscular Hemoglobin 32.8 pg (25.0-34.0); Mean Corpuscular Hgb Conc 34.9 g/dL (32.0-36.0); Mean Corpuscular Volume 93.9 fL (80.0-100.0); Mean Platelet Volume 10.2 fL (9.4-12.4); Platelet Count 231 K/uL (130-400); RDW Coefficient of Variation 11.8 % (11.5-14.5); RDW Standard Deviation 39.8 fL (36.4-46.3); Red Blood Count 3.78 M/uL (4.20-5.40)
[2023-04-01] MEDS ORDERED: PRENATAL VITAMIN 1 TAB PO SCH (08:00)
[2023-04-01] MEDS ORDERED: FERROUS SULFATE 325 MG TAB PO SCH (08:00)
[2023-04-01] MEDS: DOCUSATE SODIUM 100 MG CAP PO SCH (08:18)
[2023-04-01] MEDS ORDERED: NON-FORMULARY MEDICATION (Prenatal Multivit-Min-Fe-Fa 1 mg Tablet) PO SCH (09:00)
--- NOTE | 2023-04-01 11:04 | Obstetrical Progress Note ---
Date of Service April 01, 2023 Assessment & Plan (1) Normal course: Pt doing well d/c home after instructions Subjective Ambulation: ambulating normally Voiding: no voiding problems Passing Gas:: Yes Diet Tolerance:: regular diet Lochia:: Small Feeding Type:: breast feeding Review of Systems All systems reviewed & are unremarkable except as noted in HPI & below Physical Exam Constitutional WD/WN, vitals as above well developed and well nourished Eyes PERRL, conjunctivae normal, anicteric sclerae Neck trachea midline, no thyromegaly Respiratory normal respiratory effort, lungs clear to auscultation Auscultation: no crackles, no rales and no wheezes Cardiovascular RRR, no murmur, no edema Gastrointestinal (Abdomen) normal bowel sounds, soft, nontender, no hepatosplenomegaly Uterus is below umbilicus Musculoskeletal no cyanosis or clubbing, extremities motor strength 5/5 Skin no rashes, warm and dry Neurologic patellar DTR's 2+ bilat, sensation intact Psychiatric A+Ox3, euthymic affect Genitourinary normal external appearance Results & Data Vital Signs (Past 12 Hours) Vital Signs Temp Pulse Resp BP Pulse Ox O2 Del Method 04/01/23 08:10 36.3 C L 73 16 119/74 96 Room Air 04/01/23 04:22 36.5 C 70 20 126/84 97 Room Air 03/31/23 23:15 36.6 C 70 18 117/73 96 Room Air
[2023-04-01] MEDS ORDERED: bisacodyL 5 MG TABEC PO SCH (20:00)
== END 2023-04-01 11:20 | disposition home or self-care (01) | DRG 807 ==
LOC: OPB 23:09 → 4S1 23:11 → 4E2 03-31 14:02